=== PATIENT | male | born 1945 | race Caucasian/White ===

== ENCOUNTER → 2017-09-02 | Outpatient (CLI) | payer MEDICARE, OTHER ==
--- NOTE | 2017-09-02 11:48 | PCVCIMAG ---
APPROVED REPORT Exam: Stress Echocardiogram Indication: Hypertension, Hyperlipidemia, Family Hx CAD Patient Location: Echo lab Stress Nurse: Ora Khalil RN Room #: 2 Status: routine Ht: 5 ft 6 in HR: 58 bpm BP: 162/80 mmHg Rhythm: Sinus Bradycardia Medical History Medical History: HTN, Hyperlipidemia, No history of CAD Cardiac Risk Factors: HTN, Hyperlipidemia, FHX of CAD Procedure The patient underwent an Exercise Stress Test using the Williams Protocol. Blood pressure, heart rate, and EKG were monitored. An Echocardiogram was performed by laser technician in four stages in quad fashion. At peak stress, four selected images were obtained and placed side by side with resting images for comparison. Stress Test Details Stress Test: Exercise stress testing was performed using a Williams protocol. HR Resting HR: 58 bpmMax Heart Rate (APMHR): 147 bpm Max HR Achieved: 125 bpmTarget HR (85% APMHR): 124 bpm % of APMHR: 85 Recovery HR: 85 bpm HR response to stress: Normal HR response to stress BP Resting BP: 162/80 mmHg Max BP: 170/70 mmHg Recovery BP: 146/70 mmHg ECG Resting ECG: Sinus Bradycardia Stress ECG: Sinus Rhythm ST Change: Non-ischemic, Upsloping ST depression Arrhythmia: Rare PVCs Recovery ECG: Sinus Rhythm, normal EKG Recovery ST Change: Normal Recovery Arrhythmia: None Clinical Reason for Termination: Maximal effort Stress Symptoms: none Exercise duration: 9 min sec Highest Stage Achieved: Stage 3: 3.4 mph at 14% grade. Exercise capacity: 10.1 METs Overall Exercise Capacity for Age: Normal Angina Score: None Stress ECG Conclusion The patient exercised according to the WILLIAMS protocol for 9:00 mins, achieving a work level of Max. METS: 10.1 . The resting heart rate of 58 bpm bailey to a maximal heart rate of 125 bpm. This value represents 85% of the maximal, age-predicted heart rate. The resting blood pressure of 162/80 mmHg, bailey to a maximum blood pressure of 170/70 mmHg. The exercise test was stopped due to fatigue. Pre-Stress Echo The resting Echocardiogram showed normal left ventricular contractility with an estimated Ejection Fraction of about 55%. Normal wall motion in all segments on baseline images. Post-Stress Echo The stress Echocardiogram showed normal left ventricular contractility with an estimated Ejection Fraction of about 65-70%. Normal augmentation of wall motion in all segments on post stress images. Clinical No clinical or ECG evidence for ischemia. Conclusion Clinical Response: Non-ischemic Exercise Capacity: Average Stress ECG Response: Non-ischemic Stress Echo Images: Non-ischemic No clinical, EKG or echocardiographic evidence for ischemia. No echocardiographic evidence for exercise induced ischemia. Normal stress echocardiogram with maximal exercise stress. <Conclusion> No clinical, EKG or echocardiographic evidence for ischemia. No echocardiographic evidence for exercise induced ischemia. Normal stress echocardiogram with maximal exercise stress.
== END | disposition home or self-care (01) ==
LOC: PCVCIMAG 10:19
PROVIDERS: ATTEND Internal Medicine Cardiovascular Disease
DX: I10 Essential (primary) hypertension (principal); I49.3 Ventricular premature depolarization; E78.5 Hyperlipidemia, unspecified; Z82.49 Family history of ischemic heart disease and other diseases of the circulatory system
CPT/HCPCS: 93325; 93351

== ENCOUNTER → 2018-09-03 | Outpatient (CLI) | payer MEDICARE, OTHER | END | disposition home or self-care (01) | LOC: PCVCCLINIC 13:00 | PROVIDERS: ATTEND Internal Medicine Cardiovascular Disease | DX: I10 Essential (primary) hypertension (principal); E78.00 Pure hypercholesterolemia, unspecified; Z82.49 Family history of ischemic heart disease and other diseases of the circulatory system; Z79.82 Long term (current) use of aspirin; Z87.891 Personal history of nicotine dependence; Z88.8 Allergy status to other drugs, medicaments and biological substances | CPT/HCPCS: 80061; 93005; G0463 ==

== ENCOUNTER → 2019-09-07 | Outpatient (CLI) | payer MEDICARE, OTHER ==
--- NOTE | 2019-09-07 12:25 | PCVCIMAG ---
APPROVED REPORT Study performed: 09/07/2019 09:43:12 Exam: Stress Echocardiogram Indication: Hypertension, Hyperlipidemia, fam hx cad Stress Nurse: Ora Khalil RN Status: routine Ht: 5 ft 6 in HR: 51 bpm BP: 130/78 mmHg Rhythm: Bradycardia Procedure The patient underwent an Exercise Stress Test using the Harley Protocol. Blood pressure, heart rate, and EKG were monitored. An Echocardiogram was performed by pm technician in four stages in quad fashion. At peak stress, four selected images were obtained and placed side by side with resting images for comparison. Stress Test Details Stress Test: Exercise stress testing was performed using a Harley protocol. HR Resting HR: 51 bpmMax Heart Rate (APMHR): 145 bpm Max HR Achieved: 130 bpmTarget HR (85% APMHR): 123 bpm % of APMHR: 89 Recovery HR: 86 bpm HR response to stress: Normal HR response to stress BP Resting BP: 130/78 mmHg Max BP: 166/68 mmHg Recovery BP: 160/68 mmHg BP response to stress: Normal blood pressure response to stress. ECG Resting ECG: Sinus Rhythm Stress ECG: Sinus Rhythm, nonspecific ST-T abnormalities ST Change: Non-specific ST abnormalities Arrhythmia: rare PVC Recovery ECG: Sinus Rhythm Recovery ST Change: Nonspecific ST abnormalities Recovery Arrhythmia: None Clinical Reason for Termination: Maximal effort Stress Symptoms: Dyspnea Exercise duration: 7 min 5 sec Highest Stage Achieved: Stage 3: 3.4 mph at 14% grade. Exercise capacity: 10.1 METs Overall Exercise Capacity for Age: Normal Scale: Active Angina Score: None Pre-Stress Echo The resting Echocardiogram showed normal left ventricular contractility with an estimated Ejection Fraction of about >55%. The resting echocardiogram demonstrated normal wall motion in all wall segments. Post-Stress Echo The stress Echocardiogram showed normal left ventricular contractility with an estimated Ejection Fraction of about 65%. Compared to rest, there were no stress-induced wall motion abnormalities. Clinical No clinical or ECG evidence for ischemia. Conclusion Clinical Response: Non-ischemic Exercise Capacity: Average Stress ECG Response: Non-ischemic Stress Echo Images: Non-ischemic The left ventricle is normal in size and wall thickness in both the rest and stress images. Mild tricuspid regurgitation with PAP of 34 mmHg. Mild aortic sclerosis, no stenosis. Trace pulmonic regurgitation. Trace mitral regurgitation. No valvular stenosis. Other Information Study Quality: Adequate <Conclusion> The left ventricle is normal in size and wall thickness in both the rest and stress images. Mild tricuspid regurgitation with PAP of 34 mmHg. Mild aortic sclerosis, no stenosis. Trace pulmonic regurgitation. Trace mitral regurgitation. No valvular stenosis.
== END | disposition home or self-care (01) ==
LOC: PCVCIMAG 09:39
PROVIDERS: ATTEND Internal Medicine Cardiovascular Disease
DX: I08.2 Rheumatic disorders of both aortic and tricuspid valves (principal); I10 Essential (primary) hypertension; E78.5 Hyperlipidemia, unspecified; E78.00 Pure hypercholesterolemia, unspecified; K21.9 Gastro-esophageal reflux disease without esophagitis; Z82.49 Family history of ischemic heart disease and other diseases of the circulatory system; Z87.891 Personal history of nicotine dependence
CPT/HCPCS: 93325; 93351